=== PATIENT | female | born 1995 | race Caucasian/White ===

== ENCOUNTER → 2018-06-17 | Outpatient (CLI) | payer OTHER ==
--- NOTE | 2018-06-17 13:10 | US ---
EXAMINATION TYPE: US pelvic complete DATE OF EXAM: 06/17/2018 COMPARISON: NONE CLINICAL HISTORY: N91.2 AMENORRHEA. TECHNIQUE: . Transabdominal sonographic images of the pelvis were acquired. Date of LMP: Not reported EXAM MEASUREMENTS: Uterus: 7.2 x 2.7 x 3.3 cm Endometrial Stripe: 0.7 cm Right Ovary: 2.3 x 2.0 x 1.6 cm Left Ovary: 2.7 x 1.9 x 1.6 cm 1. Uterus: Anteverted wnl 2. Endometrium: wnl 3. Right Ovary: wnl 4. Left Ovary: wnl 5. Bilateral Adnexa: wnl 6. Posterior cul-de-sac: wnl Urinary bladder is sonolucent. The posterior wall is unremarkable. IMPRESSION: 1. Normal pelvic ultrasound
== END | disposition home or self-care (01) ==
LOC: RADUSWWP 08:00
PROVIDERS: ATTEND Internal Medicine
DX: N91.2 Amenorrhea, unspecified (principal)
CPT/HCPCS: 76856

== ENCOUNTER 2020-07-23 13:31 | Inpatient (IN) | payer OTHER ==
[2020-07-31] MEDS ORDERED: METHYLERGONOVINE 0.2 MG/ML 1 ML AMP IM PRN (07:03)
[2020-07-31] MEDS ORDERED: CARBOPROST TROMETHAMINE 250 MCG/ML 1 ML AMP IM PRN (07:03)
[2020-07-31] MEDS ORDERED: LIDOCAINE 0.5% (PF) 5 MG/ML (50 ML SDV) SQ PRN (07:03)
[2020-07-31] MEDS ORDERED: OXYTOCIN 10 UNIT/ML 1 ML VIAL IM PRN (07:03)
[2020-07-31] MEDS ORDERED: TERBUTALINE 1 MG/ML VIAL SQ PRN (07:03)
[2020-07-31] MEDS ORDERED: OXYTOCIN 30 UNITS/500 ML NS 30 UNIT in SALINE 1 500ML.BAG IV SCH (07:15)
[2020-07-31 07:43] LABS: Basophils % (A) 0 %; Eosinophils # (A) 0.3 k/uL (0-0.7); Eosinophils % (A) 3 %; HCT 36.1 % (34.0-46.0); HGB 11.7 gm/dL (11.4-16.0); Hypochromasia Slight; Lymphocytes # (A) 1.6 k/uL (1.0-4.8); Lymphocytes % (A) 17 %; MCH 25.2 pg (25.0-35.0); MCHC 32.4 g/dL (31.0-37.0); Mean Platelet Volume 7.3; Monocytes # (A) 0.6 k/uL (0-1.0); Monocytes % (A) 6 %; Neutrophils % (A) 73 %; Platelet Count 364 k/uL (150-450); RBC 4.63 m/uL (3.80-5.40); RDW 14.8 % (11.5-15.5); WBC 9.5 k/uL (3.8-10.6)
[2020-07-31] MEDS: LACTATED RINGERS 1,000 ML IV SCH ×3 (07:53→17:22)
[2020-07-31] MEDS: BUTORPHANOL 1 MG/ML 1 ML VIAL IV PRN ×3 (12:55→19:49)
[2020-07-31] MEDS ORDERED: ROPIVACAINE 100 MG, fentaNYL (PF) 200 MCG in SODIUM CHLORIDE 0.9% 76 ML EPIDURAL ONE (18:59)
--- NOTE | 2020-07-31 20:09 | P.HPOB ---
History of Present Illness H&P Date: 07/31/20 Chief Complaint: Intrauterine at term: Induction of labor Patient is a 25-year-old at 40 weeks gestation arrives for induction of labor. Her course was uncomplicated and while she had a breech presentation at 34 weeks the baby did flip a 36 weeks and she is dilated to 1- 1/2 cm 80% effaced and -2 station. Artificial rupture membranes was performed clear fluid is noted and a category 1 tracing is noted. Pertinent labs include negative groupie strep past one-hour Glucola screen A- blood type, Rh and but was negative, rubella is immune, hepatitis be surface antigen and RPR were both negative. She did receive Rasta gamma. All questions are answered for she is where of increased risk for need for section with induction of labor. Past Medical History Past Medical History: No Reported History History of Any Multi-Drug Resistant Organisms: None Reported Past Surgical History: No Surgical Hx Reported Past Anesthesia/Blood Transfusion Reactions: No Reported Reaction Past Psychological History: ADD/ADHD Smoking Status: Former smoker Past Alcohol Use History: Occasional Past Drug Use History: Marijuana - Past Family History Mother Family Medical History: No Reported History Father Family Medical History: No Reported History Medications and Allergies Home Medications Medication Instructions Recorded Confirmed Type Pnv No.95/Ferrous Fum/Folic AC 1 tab PO ONCE 07/31/20 07/31/20 History [ Multivitamin Tablet] Allergies Allergy/AdvReac Type Severity Reaction Status Date / Time No Known Allergies Allergy Verified 07/31/20 07:03 Exam Osteopathic Statement: *. No significant issues noted on an osteopathic structural exam other than those noted in the History and Physical/Consult. Vital Signs Temp Pulse Resp BP Pulse Ox 07/31/20 07:02 96.7 F L 119 H 18 135/87 98 Intake and Output 07/31/20 07/31/20 07/31/20 06:59 14:59 22:59 Intake Total 1000 Balance 1000 Intake: IV 1000 Other: Weight 109.769 kg - OBG Physical Exam Breast: both: normal (no masses) Abdomen: bowel sounds normal, no diffuse tenderness, no bruit present, no guarding noted, no hepatomegaly, no splenomegaly, no mass Vulva: both: normal Vagina: normal moisture, no discharge Cervix: no lesion, no discharge Uterus: normal size, normal contour Adnexa: both: normal Anus/Rectum: normal perianal skin, no rectal mass, no hemorrhoids, heme negative Results Result Diagrams: 07/31/20 07:07 Abnormal Lab Results - Last 24 Hours (Table) 07/31/20 Range/Units 07:07 MCV 78.0 L (80.0-100.0) fL
[2020-07-31] MEDS ORDERED: BENZOCAINE/MENTHOL SPRAY 1 GM/SPRAY AEROSOL TOPICAL PRN (23:34)
[2020-07-31] MEDS ORDERED: ZOLPIDEM 5 MG TAB PO PRN (23:34)
[2020-07-31] MEDS ORDERED: Rhogam IMMUNE GLOBULIN 1,500 UNIT/1 ML IM ONE (23:34)
[2020-07-31] MEDS ORDERED: SIMETHICONE 80 MG CHEWABLE PO PRN (23:34)
[2020-07-31] MEDS ORDERED: ACETAMINOPHEN TAB 325 MG TAB PO PRN (23:34)
[2020-07-31] MEDS ORDERED: diphenhydrAMINE 50 MG CAP PO PRN (23:34)
[2020-07-31] MEDS ORDERED: LANOLIN CREAM 5 GM TUBE TOPICAL PRN (23:34)
[2020-07-31] MEDS ORDERED: diphenhydrAMINE 50 MG/ML 1 ML VIAL IVP PRN ×2 (23:34)
[2020-07-31] MEDS ORDERED: HYDROCORTISONE 2.5% RECTAL CREAM 30 GM TUBE RECTAL PRN (23:34)
[2020-07-31] MEDS ORDERED: diphenhydrAMINE 25 MG CAP PO PRN (23:34)
[2020-07-31] MEDS ORDERED: OXYTOCIN 20 UNITS/1000 ML NS 1,000 ML IV SCH (23:45)
[2020-08-01] MEDS: IBUPROFEN 600 MG TAB PO PRN ×3 (00:15→17:09)
--- NOTE | 2020-08-01 07:41 | P.DS ---
Providers Date of admission: 07/31/20 06:51 Expected date of discharge: 08/01/20 Attending physician: Stuart Back Primary care physician: Stated None Hospital Course: Patient is doing very well day 1. She is ambulating, voiding and tolerating her diet. She voices no complaints. Vital signs are stable and afebrile. Heart regular, lungs clear, extremities without pain. Abdomen soft uterus is firm and currently Rasta lochia is reported to be light. We'll plan to discharge her to home later today once baby's past 24 hours. She does relate bleeding is light at this time but is aware that should she start having any heavy bleeding that it could be that there is still some membranes in her uterus that need to come out and she is to notify our office immediately. She was also warned the possibility she may see some membranes as things move forward, but at the conclusion of the delivery again I could not identify or palpate any more membranes. She will follow up with me in 6 weeks otherwise. Chart instructions were thoroughly reviewed and all questions were otherwise answered. She is stable for discharge at this time. Patient Condition at Discharge: Good Plan - Discharge Summary New Discharge Prescriptions: New Ibuprofen [Motrin] 600 mg PO Q6HR PRN #30 tab PRN Reason: Pain No Action Pnv No.95/Ferrous Fum/Folic AC [ Multivitamin Tablet] 1 tab PO ONCE Discharge Medication List Pnv No.95/Ferrous Fum/Folic AC [ Multivitamin Tablet] 1 tab PO ONCE 07/31/20 [History] Ibuprofen [Motrin] 600 mg PO Q6HR PRN #30 tab 08/01/20 [Rx] Follow up Appointment(s)/Referral(s): Stuart Back DO [Doctor of Osteopathic Medicine] - 6 Weeks Activity/Diet/Wound Care/Special Instructions: No heavy lifting, insertion driving, and pelvic rest. If any high temperatures, heavy bleeding, or severe pain call my office
[2020-08-01 08:13] LABS: Basophils % (A) 0 %; Eosinophils # (A) 0.1 k/uL (0-0.7); Eosinophils % (A) 1 %; HCT 30.2 % (34.0-46.0); Hypochromasia Moderate; Lymphocytes % (A) 14 %; MCH 25.2 pg (25.0-35.0); MCHC 31.2 g/dL (31.0-37.0); MCV 80.8 fL (80.0-100.0); Mean Platelet Volume 7.3; Monocytes # (A) 0.9 k/uL (0-1.0); Monocytes % (A) 7 %; Neutrophils # (A) 10.7 k/uL (1.3-7.7); Neutrophils % (A) 77 %; Platelet Count 311 k/uL (150-450); RBC 3.73 m/uL (3.80-5.40); RDW 14.9 % (11.5-15.5); WBC 13.9 k/uL (3.8-10.6)
[2020-08-01 08:22] LABS: HGB 9.4 gm/dL (11.4-16.0)
[2020-08-01] MEDS: SENNOSIDES-DOCUSATE SODIUM 1 EACH TAB PO SCH ×2 (08:32→21:22)
[2020-08-02] MEDS: IBUPROFEN 600 MG TAB PO PRN ×2 (00:13→08:13)
[2020-08-02] MEDS: SENNOSIDES-DOCUSATE SODIUM 1 EACH TAB PO SCH (08:13)
--- NOTE | 2020-08-02 08:19 | P.DS ---
Providers Date of admission: 07/31/20 06:51 Expected date of discharge: 08/02/20 Attending physician: Stuart Back Primary care physician: Stated None Hospital Course: Patient did not go home yesterday there are no changes otherwise her care for her follow-up she will be discharged home today in stable and satisfactory condition. She voices no other complaints. Her vital signs are stable and she is afebrile. Heart regular, lungs clear, extremities without pain. Abdomen soft her uterus is firm and her lochia is reported to be light. Patient Condition at Discharge: Good Plan - Discharge Summary New Discharge Prescriptions: New Ibuprofen [Motrin] 600 mg PO Q6HR PRN #30 tab PRN Reason: Pain No Action Pnv No.95/Ferrous Fum/Folic AC [ Multivitamin Tablet] 1 tab PO ONCE Discharge Medication List Pnv No.95/Ferrous Fum/Folic AC [ Multivitamin Tablet] 1 tab PO ONCE 07/31/20 [History] Ibuprofen [Motrin] 600 mg PO Q6HR PRN #30 tab 08/01/20 [Rx] Follow up Appointment(s)/Referral(s): Stuart Back DO [Doctor of Osteopathic Medicine] - 6 Weeks Activity/Diet/Wound Care/Special Instructions: No heavy lifting, insertion driving, and pelvic rest. If any high temperatures, heavy bleeding, or severe pain call my office Discharge Disposition: HOME SELF-CARE
[2020-08-02 09:01] VITALS: BP 111/69; PULSE 80; RESP 17; TEMP 98.3
--- NOTE | 2020-08-13 10:06 | P.PROBDLV ---
Vaginal Delivery Note - . Vaginal Delivery Note: Patient progressed complete and pushing with vacuum assisted vaginal delivery of a viable baby scores were 8 and 9 at one and 5 minutes respectively. Patient was pushing and baby got to approximately +2 station and was having deep variable decelerations with slow return to baseline. Due to some maternal exhaustion and heart tones were not returning to baseline rapidly decision to move forward with a vacuum-assisted delivery was made. A brief discussion was held with the family and patient but due to the urgent/emergent nature of need for delivery. Discussion was unable to be completed vacuum was applied and pumped to minimal millimeters mercury for use in the green zone. With one pull no pop offs the baby's head was easily delivered rest to 2 to and then anterior posterior shoulders were easily delivered followed by the remainder the baby. Baby was then mouth nares bulb suctioned and placed on mother's abdomen where the umbilical course allowed to pulsate for 30 seconds prior to clamping and cutting. Once this was completed umbilical cord was clamped cut usual fashion nursery personnel was present to assume care. Placenta was then delivered intact Pitocin was added to the IV. Laceration was then repaired with 3-0 Vicryl fine 1% Xylocaine for analgesia. Both mother and baby are stable following delivery. Please weight was 3.40 kg
== END 2020-08-02 10:55 | disposition home or self-care (01) | DRG 807 ==
LOC: 4FBP 07-31 06:51
PROVIDERS: ADMIT Obstetrics & Gynecology; ATTEND Obstetrics & Gynecology
PROC: 3E0R3BZ Introduction of Anesthetic Agent into Spinal Canal, Percutaneous Approach (ICD-10-PCS; principal; 2020-07-31)
PROC: 3E0234Z Introduction of Serum, Toxoid and Vaccine into Muscle, Percutaneous Approach (ICD-10-PCS; principal; 2020-07-31)
PROC: 00HU33Z Insertion of Infusion Device into Spinal Canal, Percutaneous Approach (ICD-10-PCS; principal; 2020-07-31)
PROC: 10D07Z6 Extraction of Products of Conception, Vacuum, Via Natural or Artificial Opening (ICD-10-PCS; principal; 2020-07-31)
PROC: 0HQ9XZZ Repair Perineum Skin, External Approach (ICD-10-PCS; principal; 2020-07-31)
DX: O76 Abnormality in fetal heart rate and rhythm complicating labor and delivery (principal); Z37.0 Single live birth; O75.81 Maternal exhaustion complicating labor and delivery; O70.0 First degree perineal laceration during delivery; O26.893 Other specified pregnancy related conditions, third trimester; Z67.11 Type A blood, Rh negative; Z3A.40 40 weeks gestation of pregnancy; Z87.891 Personal history of nicotine dependence; Z79.899 Other long term (current) drug therapy; Z86.59 Personal history of other mental and behavioral disorders
CPT/HCPCS: 85025; 85461; 86850; 86870; 86880; 86900; 86901

== ENCOUNTER 2024-01-30 09:49 | Observation (INO) | payer OTHER ==
[2024-01-30] MEDS ORDERED: ACETAMINOPHEN IV (For NPO) 1,000 MG in EMPTY BAG 1 BAG IVPB ONE (10:32)
[2024-01-30] MEDS: ACETAMINOPHEN IV (For NPO) 1,000 MG in EMPTY BAG 1 BAG IVPB STA (10:40)
[2024-01-30] MEDS: ONDANSETRON 4 MG/2 ML VIAL IVP STA (10:41)
[2024-01-30 10:57] LABS: Appearance,Urine Turbid (Clear); Bacteria,Urine Occasional /hpf; Bilirubin,Urine Negative (Negative); Blood,Urine Moderate (Negative); Color,Urine Yellow; Glucose,Urine (UA) Trace (Negative); Ketones,Urine Negative (Negative); Leukocyte Esterase,Urine Large (Negative); Mucus,Urine Moderate /hpf; Nitrite,Urine Negative (Negative); Protein,Urine 1+ (Negative); RBC,Urine 48 /hpf (0-5); Specific Gravity,Urine 1.031 (1.001-1.035); Squamous Epithelial Cell,Urine 13 /hpf (0-4); Urobilinogen,Urine <2.0 mg/dL (<2.0); WBC,Urine 106 /hpf (0-5)
[2024-01-30] MEDS ORDERED: ONDANSETRON 4 MG/2 ML VIAL IVP PRN (12:00)
[2024-01-30] MEDS: HYDROmorphone 0.5 MG/0.5 ML SYRINGE IVP PRN (12:24)
[2024-01-30] MEDS: LACTATED RINGERS 1,000 ML IV SCH (12:27)
[2024-01-30 12:28] LABS: Basophils % (A) 0 %; Eosinophils # (A) 0.1 k/uL (0-0.7); Eosinophils % (A) 1 %; HGB 11.4 gm/dL (11.4-16.0); Lymphocytes # (A) 1.1 k/uL (1.0-4.8); Lymphocytes % (A) 13 %; MCH 27.4 pg (25.0-35.0); MCHC 31.7 g/dL (31.0-37.0); MCV 86.3 fL (80.0-100.0); Mean Platelet Volume 7.8; Monocytes # (A) 0.4 k/uL (0-1.0); Monocytes % (A) 5 %; Neutrophils # (A) 6.6 k/uL (1.3-7.7); Neutrophils % (A) 80 %; Platelet Count 286 k/uL (150-450); RBC 4.17 m/uL (3.80-5.40); RDW 14.2 % (11.5-15.5); WBC 8.3 k/uL (3.8-10.6)
[2024-01-30 12:56] LABS: ALT 11 U/L (4-34); AST 25 U/L (14-36); African American GFR (CKD) >90 (>60 ml/min/1.73 sqM); Albumin 3.5 g/dL (3.5-5.0); Alkaline Phosphatase 69 U/L (38-126); Anion Gap 10 mmol/L; Blood Urea Nitrogen 6 mg/dL (7-17); Calcium 9.3 mg/dL (8.4-10.2); Carbon Dioxide 15 mmol/L (22-30); Chloride 107 mmol/L (98-107); Glucose 81 mg/dL (74-99); Non-African American GFR(CKD) >90 (>60 ml/min/1.73 sqM); Sodium 132 mmol/L (137-145); Total Bilirubin 0.6 mg/dL (0.2-1.3); Total Protein 6.6 g/dL (6.3-8.2)
[2024-01-30 12:58] LABS: Potassium 4.2 mmol/L (3.5-5.1)
[2024-01-30] MEDS: ACETAMINOPHEN IV (For NPO) 1,000 MG in EMPTY BAG 1 BAG IVPB PRN (17:58)
--- NOTE | 2024-01-30 21:44 | P.HPOB ---
History of Present Illness H&P Date: 01/30/24 Chief Complaint: IUP @ 24 weeks, renal lithiasis 28 yo at 24 weeks that presented to labor and delivery with urinary complaints. She states she was treated for a UTI about a week ago but symptoms did return wed/. she noted increased pain that radiated from her right flank to the groin prior to presentation. She in addition had noted n/v upon presentation. she is noting FM, denies ctx or VB UA was done in triage with blood large leuks, and WBC. She was given ofirimev which initially controlled her pain quite well, but within 1-2 hours she noted the pain returned. SHe was then admitted for IV, antibiotics and pain control. Review of Systems Constitutional: Denies chills, Denies fatigue, Denies fever Ears, nose, mouth and throat: Denies headache Cardiovascular: Denies leg edema Respiratory: Denies dyspnea Gastrointestinal: Reports nausea, Reports vomiting Genitourinary: Reports dysuria, Reports flank pain, Reports Past Medical History Past Medical History: No Reported History History of Any Multi-Drug Resistant Organisms: None Reported Past Surgical History: No Surgical Hx Reported Past Anesthesia/Blood Transfusion Reactions: No Reported Reaction Past Psychological History: ADD/ADHD Smoking Status: Vaper Past Alcohol Use History: Occasional Past Drug Use History: Marijuana - Past Family History Mother Family Medical History: No Reported History Father Family Medical History: No Reported History Medications and Allergies Home Medications Medication Instructions Recorded Confirmed Type Pnv No.95/Ferrous Fum/Folic AC 1 tab PO ONCE 07/31/20 07/31/20 History [ Multivitamin Tablet] Ibuprofen [Motrin] 600 mg PO Q6HR PRN #30 tab 08/01/20 Rx Allergies Allergy/AdvReac Type Severity Reaction Status Date / Time Sulfa (Sulfonamide Allergy Rash/Hives Verified 01/30/24 10:28 Antibiotics) Exam Osteopathic Statement: *. No significant issues noted on an osteopathic structural exam other than those noted in the History and Physical/Consult. Vital Signs Temp Pulse Resp BP 01/30/24 14:45 98.6 F 72 20 118/67 01/30/24 11:57 97.9 F 100 16 122/83 01/30/24 10:30 97.9 F 100 16 122/83 Intake and Output 03/01/30/24 01/30/24 06:59 14:59 22:59 Intake Total 240 Output Total 300 300 Balance -60 -300 Intake: Oral 240 Output: Urine 300 300 Other: Voiding Method Toilet # Voids 1 1 # Bowel Movements 0 Weight 112.491 kg Targeted physical exam was performed in the state General is a well-nourished well-developed female in no acute distress (She states her pain is improved from admission), breathing is nonlabored, heart has a regular rate and rhythm, abdomen is gravid, heart tones are appropriate for gestational age, cervical exam is deferred. Results Result Diagrams: 01/30/24 12:00 01/30/24 12:23 Abnormal Lab Results - Last 24 Hours (Table) 01/30/24 01/30/24 Range/Units 10:28 12:23 Sodium 132 L (137-145) mmol/L Carbon Dioxide 15 L (22-30) mmol/L BUN 6 L (7-17) mg/dL Urine Appearance Turbid H (Clear) Urine Protein 1+ H (Negative) Urine Glucose (UA) Trace H (Negative) Urine Blood Moderate H (Negative) Ur Leukocyte Esterase Large H (Negative) Urine RBC 48 H (0-5) /hpf Urine WBC 106 H (0-5) /hpf Urine WBC Clumps Many H (None) /hpf Ur Squamous Epith Cells 13 H (0-4) /hpf Urine Bacteria Occasional H (None) /hpf Urine Mucus Moderate H (None) /hpf Assessment and Plan (1) 24 weeks gestation of Current Visit: Yes Status: Acute Code(s): Z3A.24 - 24 WEEKS GESTATION OF SNOMED Code(s): 257508427 (2) Renal lithiasis Current Visit: Yes Status: Acute Code(s): N20.0 - CALCULUS OF KIDNEY SNOMED Code(s): 36517156 (3) Nausea & vomiting Current Visit: Yes Status: Acute Code(s): R11.2 - NAUSEA WITH VOMITING, UNSPECIFIED SNOMED Code(s): 53905488 (4) UTI (urinary tract infection) Current Visit: Yes Status: Acute Code(s): N39.0 - URINARY TRACT INFECTION, SITE NOT SPECIFIED SNOMED Code(s): 90651592 Plan: 28-year-old at 24 weeks of is admitted for renal lithiasis, UTI. Patient had significant nausea and vomiting upon presentation. Patient has IV fluids LR @ 125cc/hr, Ofirmev and Dilaudid are offered for pain control. Zofran is ordered and has controlled her nausea quite well since admission. FHTs q shift Will continue to observe overnight and if pain is improved through the evening we will plan on discharge home tomorrow.
[2024-01-31] MEDS: ACETAMINOPHEN TAB 500 MG TAB PO STA (08:19)
[2024-01-31 08:51] VITALS: BP 112/70; PULSE 94; RESP 18; TEMP 98
--- NOTE | 2024-01-31 09:05 | P.DS ---
Providers Date of admission: 01/30/24 11:53 Expected date of discharge: 01/31/24 Attending physician: Caty Spear Primary care physician: Stated None - Discharge Diagnosis(es) (1) 24 weeks gestation of Current Visit: Yes Status: Acute (2) Renal lithiasis Current Visit: Yes Status: Acute (3) UTI (urinary tract infection) Current Visit: Yes Status: Acute Hospital Course: The patient is a 28-year-old 3 para 1-0-1-1 admitted at 24 weeks by good dating parameters. She is admitted with presumptive nephrolithiasis secondary to significant flank pain without fever. There was no evidence of pyelone phritis on admission. She does have evidence of possible UTI having been treated for UTI approximately 1 week ago with Macrobid. Antibiotic prophylaxis was started with Kefzol. Over the next 24 hours along with aggressive IV hydration, her pain has significantly improved and she is performing all activities of daily living. She was deemed stable for discharge on hospital day #2 and was discharged home to follow-up in the office as previously scheduled in approximately 2 weeks. Instructions were to call for any significantly increasing symptoms or concerns for which there have been none during the hospitalization. She was to aggressively orally hydrate at home. She was given a prescription for Keflex 500 mg 3 times daily by mouth for 7 days. Urine culture is pending. Procedures: #1. IV hydration #2. IV pain control #3. Antibiotic prophylaxis Patient Condition at Discharge: Stable Plan - Discharge Summary New Discharge Prescriptions: No Action Pnv No.95/Ferrous Fum/Folic AC [ Multivitamin Tablet] 1 tab PO ONCE Ibuprofen [Motrin] 600 mg PO Q6HR PRN #30 tab PRN Reason: Pain Discharge Medication List Pnv No.95/Ferrous Fum/Folic AC [ Multivitamin Tablet] 1 tab PO ONCE 07/31/20 [History] Ibuprofen [Motrin] 600 mg PO Q6HR PRN #30 tab 08/01/20 [Rx] Follow up Appointment(s)/Referral(s): Juarez Mckenzie MD [STAFF PHYSICIAN] - 2 Weeks Discharge Disposition: HOME SELF-CARE
== END 2024-01-31 10:05 | disposition home or self-care (01) ==
LOC: FBPOP 09:49 → 4FBP 11:53
PROVIDERS: ADMIT Obstetrics & Gynecology Obstetrics; ATTEND Obstetrics & Gynecology Obstetrics
DX: O26.832 Pregnancy related renal disease, second trimester (principal); N20.0 Calculus of kidney; O23.42 Unspecified infection of urinary tract in pregnancy, second trimester; O99.342 Other mental disorders complicating pregnancy, second trimester; F90.9 Attention-deficit hyperactivity disorder, unspecified type; O99.332 Smoking (tobacco) complicating pregnancy, second trimester; F17.290 Nicotine dependence, other tobacco product, uncomplicated; Z3A.24 24 weeks gestation of pregnancy; Z88.2 Allergy status to sulfonamides
CPT/HCPCS: 96376; 99214; 96361; 96365; 96366 ×2; 96367; 96374; 96375; 80053; 85025; 81001; 87086; G0378 ×2; J0690 ×2; J2405; J0131; J1170

== ENCOUNTER 2024-05-15 05:59 | Inpatient (IN) | payer OTHER ==
[2024-05-15] MEDS: LACTATED RINGERS 1,000 ML IV SCH (06:15)
[2024-05-15] MEDS ORDERED: CARBOPROST TROMETHAMINE 250 MCG/ML 1 ML AMP IM PRN (06:18)
[2024-05-15] MEDS ORDERED: METHYLERGONOVINE 0.2 MG/ML 1 ML AMP IM PRN (06:18)
[2024-05-15] MEDS ORDERED: OXYTOCIN 10 UNIT/ML 1 ML VIAL IM PRN (06:18)
[2024-05-15] MEDS ORDERED: miSOPROStoL 200 MCG TAB PO PRN (06:18)
[2024-05-15] MEDS ORDERED: TERBUTALINE 1 MG/ML VIAL SQ PRN (06:18)
[2024-05-15] MEDS ORDERED: TRANEXAMIC 1,000 MG/100ML-NACL 1,000 MG in EMPTY BAG 1 BAG IV PRN (06:18)
[2024-05-15] MEDS: OXYTOCIN 30 UNITS/500 ML NS 30 UNIT in SALINE 1 500ML.BAG IV SCH ×2 (06:35→15:30)
[2024-05-15 07:14] LABS: Anisocytosis Slight; Basophils % (A) 0 %; Eosinophils # (A) 0.1 k/uL (0-0.7); Eosinophils % (A) 2 %; HCT 30.6 % (34.0-46.0); HGB 9.2 gm/dL (11.4-16.0); Hypochromasia Marked; Lymphocytes # (A) 1.9 k/uL (1.0-4.8); Lymphocytes % (A) 29 %; MCH 22.5 pg (25.0-35.0); Mean Platelet Volume 8.9; Microcytosis Slight; Monocytes # (A) 0.4 k/uL (0-1.0); Monocytes % (A) 6 %; Neutrophils % (A) 60 %; Platelet Count 260 k/uL (150-450); Poikilocytosis Slight; RBC 4.07 m/uL (3.80-5.40); RDW 16.2 % (11.5-15.5); WBC 6.6 k/uL (3.8-10.6)
[2024-05-15] MEDS ORDERED: NALBUPHINE 10 MG/ML (10 ML MDV) IV PRN (08:50)
--- NOTE | 2024-05-15 08:54 | P.HPOB ---
History of Present Illness H&P Date: 05/15/24 Chief Complaint: 39-1/7 weeks, elective induction The patient is a 28-year-old 3 para 1-0-1-1 admitted at 39-1/7 weeks as established by last menstrual period and confirmed by 16-week ultrasound. She is admitted for elective induction of labor with all signs reassuring, category 1 heart rate tracing. She is known to be Rh- and received RhoGAM at 28 weeks. She otherwise has had an uncomplicated and group B strep status is negative. Obstetrical history: 3 para 1-0-1-1 with 1 term vaginal delivery complicated by retained placenta. Current statistics are listed in history of present illness. EDC of 05/21/2024 was established by last menstrual period and confirmed by 16-week ultrasound. Laboratory workup demonstrates a blood type of a negative with a negative antibody screen. Rubella status is immune. The remainder of the laboratory workup was within normal limits. Early Glucola as well as second trimester Glucola within normal limits. Group B strep status is negative. Gynecologic history: Unremarkable with no history of any infections to include STDs. Review of Systems Review of systems is confined to history of present illness. Past Medical History Past Medical History: No Reported History History of Any Multi-Drug Resistant Organisms: None Reported Past Surgical History: No Surgical Hx Reported Past Anesthesia/Blood Transfusion Reactions: No Reported Reaction Past Psychological History: ADD/ADHD Smoking Status: Never smoker Past Drug Use History: None Reported - Past Family History Mother Family Medical History: No Reported History Father Family Medical History: No Reported History Medications and Allergies Home Medications Medication Instructions Recorded Confirmed Type Pnv No.95/Ferrous Fum/Folic AC 1 tab PO ONCE 07/31/20 01/31/24 History [ Multivitamin Tablet] Allergies Allergy/AdvReac Type Severity Reaction Status Date / Time Sulfa (Sulfonamide Allergy Rash/Hives Verified 05/15/24 06:16 Antibiotics) Exam Vital Signs Temp Pulse Resp BP Pulse Ox 05/15/24 06:15 97.4 F L 93 18 126/88 96 Intake and Output 05/14/24 05/15/24 05/15/24 22:59 06:59 14:59 Other: Weight 111.584 kg In general, this is a well-developed, well-nourished white female in no acute distress. Her heart has a regular rhythm and rate without murmur. Her lungs are clear to auscultation bilaterally in all [place]. Her abdomen is gravid, nondistended, has normal active bowel sounds, soft, nontender, and without any palpable masses aside from the uterine fundus. Her extremities are without any cyanosis, clubbing, or edema and are nontender to palpation bilaterally. Digital cervical examination demonstrates the cervix to be 2+ centimeters dilated, 50 to 60% effaced, with a vertex and presentation at -2 station. Artificial rupture of membranes is carried out demonstrating clear fluid. Results Result Diagrams: 05/15/24 06:19 Abnormal Lab Results - Last 24 Hours (Table) 05/15/24 Range/Units 06:19 Hgb 9.2 L (11.4-16.0) gm/dL Hct 30.6 L (34.0-46.0) % MCV 75.0 L (80.0-100.0) fL MCH 22.5 L (25.0-35.0) pg MCHC 30.0 L (31.0-37.0) g/dL RDW 16.2 H (11.5-15.5) % Assessment and Plan (1) Term Current Visit: Yes Status: Acute Code(s): Z34.90 - ENCNTR FOR SUPRVSN OF NORMAL , UNSP, UNSP TRIMESTER SNOMED Code(s): 32792784
[2024-05-15] MEDS ORDERED: fentaNYL (PF) 50 MCG/ML 5 ML AMP ONE (11:49)
[2024-05-15] MEDS ORDERED: ROPIVACAINE 5 MG/ML 30 ML VIAL ONE (11:49)
[2024-05-15] MEDS ORDERED: SODIUM CHLORIDE 0.9% 250 ML BAG ONE (11:49)
[2024-05-15] MEDS ORDERED: SIMETHICONE 80 MG CHEWABLE PO PRN (14:42)
[2024-05-15] MEDS ORDERED: diphenhydrAMINE 50 MG/ML 1 ML VIAL IVP PRN ×2 (14:42)
[2024-05-15] MEDS ORDERED: diphenhydrAMINE 25 MG CAP PO PRN (14:42)
[2024-05-15] MEDS ORDERED: diphenhydrAMINE 50 MG CAP PO PRN (14:42)
[2024-05-15] MEDS ORDERED: HYDROCORTISONE 2.5% RECTAL CREAM 30 GM TUBE RECTAL PRN (14:42)
[2024-05-15] MEDS ORDERED: HYDROcodone/APAP 7.5-325MG 1 EACH TAB PO PRN (14:42)
[2024-05-15] MEDS ORDERED: BENZOCAINE/MENTHOL SPRAY 1 GM/SPRAY AEROSOL TOPICAL PRN (14:42)
[2024-05-15] MEDS ORDERED: HYDROcodone/APAP 5-325MG 1 EACH TAB PO PRN (14:42)
[2024-05-15] MEDS ORDERED: ZOLPIDEM 5 MG TAB PO PRN (14:42)
[2024-05-15] MEDS ORDERED: LANOLIN CREAM 1 GM TUBE TOPICAL PRN (14:42)
[2024-05-15] MEDS ORDERED: ACETAMINOPHEN TAB 325 MG TAB PO PRN (14:42)
--- NOTE | 2024-05-15 14:47 | P.PROBDLV ---
Vaginal Delivery Note - . Vaginal Delivery Note: The patient is a 28-year-old 3 para 1-0-1-1 admitted at 39-0/7 weeks by good dating parameters. Her has been uncomplicated and group B strep status is negative. She is Rh- and received RhoGAM at 28 weeks. On labor delivery, all signs are reassuring with category 1 heart rate tracing. She had Pitocin augmentation started followed by artificial rupture of membranes for clear fluid. She progressed through the latent phase of labor to the active phase at which time an epidural catheter was placed for analgesia. She then made fairly rapid progress through the active phase of labor to complete and pushed over the course of approximately 2-3 contractions to a normal spontaneous vaginal delivery of a viable 7 pound 1 ounce baby girl with Apgars of 9 at 1 minute and 9 at 5 minutes delivered in the left occiput anterior position. The placenta was delivered spontaneously and initially thought to be intact and grossly normal with a grossly normal three-vessel cord inserted approximately 3 to 4 cm from the margin of the placental disc. The patient continued to have a small amount of bleeding and exploration of her cervix demonstrated 1 single cotyledon that was lodged in the lower uterine segment and removed manually without difficulty after which time bleeding stopped. She was found to have a second-degree midline laceration likely over the site of a previous midline episiotomy as it was perfectly straight. This was repaired in standard fashion using 3-0 chromic catgut without difficulty. Estimated blood loss for the case was approximately 400 mL. There were no complications. All sponge, instrument, and needle counts were correct. Both mother and infant are resting comfortably in recovery.
[2024-05-15] MEDS: LIDOCAINE 0.5% (PF) 5 MG/ML (50 ML SDV) SQ PRN (15:31)
[2024-05-15] MEDS: IBUPROFEN 600 MG TAB PO PRN (19:01)
[2024-05-15] MEDS: SENNOSIDES-DOCUSATE SODIUM 1 EACH TAB PO SCH (19:45)
[2024-05-15] MEDS: Rhogam IMMUNE GLOBULIN 1,500 UNIT/1 ML IM ONE (20:39)
[2024-05-16 04:12] VITALS: RESP 16
[2024-05-16 07:59] LABS: Basophils % (A) 0 %; Eosinophils # (A) 0.2 k/uL (0-0.7); Eosinophils % (A) 2 %; HCT 24.9 % (34.0-46.0); Hypochromasia Marked; Lymphocytes # (A) 2.1 k/uL (1.0-4.8); Lymphocytes % (A) 24 %; MCH 23.4 pg (25.0-35.0); MCHC 30.6 g/dL (31.0-37.0); MCV 76.5 fL (80.0-100.0); Mean Platelet Volume 7.9; Microcytosis Slight; Monocytes # (A) 0.5 k/uL (0-1.0); Monocytes % (A) 6 %; Neutrophils # (A) 5.7 k/uL (1.3-7.7); Neutrophils % (A) 66 %; Platelet Count 200 k/uL (150-450); Poikilocytosis Slight; RBC 3.25 m/uL (3.80-5.40); WBC 8.7 k/uL (3.8-10.6)
[2024-05-16 08:02] LABS: HGB 7.6 gm/dL (11.4-16.0)
[2024-05-16 08:25] VITALS: BP 130/72; PULSE 86; TEMP 98.5
--- NOTE | 2024-05-16 08:38 | P.DS ---
Providers Date of admission: 05/15/24 05:59 Expected date of discharge: 05/16/24 Attending physician: Juarez Mckenzie Primary care physician: Stated None - Discharge Diagnosis(es) (1) Term Current Visit: Yes Status: Acute (2) Normal spontaneous vaginal delivery Current Visit: Yes Status: Acute Hospital Course: The patient is a 28-year-old 3 para 1-0-1-1 admitted at 39-1/7 weeks by good dating parameters. She is admitted for elective induction of labor with all signs reassuring. Her was uncomplicated though she is Rh- and received RhoGAM at 28 weeks. Group B strep status is negative. On labor and delivery, she had Pitocin started and underwent artificial rupture of membranes. She had an epidural catheter placed around the onset of the active phase of labor. She progressed quickly through the active phase to complete and pushed to a normal spontaneous vaginal delivery of a viable 7 pound 1 ounce baby girl with Apgars of 9 at 1 minute and 9 at 5 minutes. Her course was unremarkable with vital signs remaining stable and her temperature was afebrile throughout. She was deemed stable for discharge on day #1 and was discharged home to follow-up in the office in 6 weeks time routinely. Discharge instructions included calling for any significantly increased bleeding or foul- smelling lochia, significantly increased fever or abdominal pain, perineal complaints, breast complaints, or anything else that concerned her. She was additionally instructed to have nothing in the vagina for at least 6 weeks time to include intercourse. She understood her instructions and agrees to follow-up as noted above. Discharge medications included continued vitamins as she has opted to breast-feed. She was otherwise to use [id number] analgesic pain medications as needed. Maternal blood type is A- and rubella sta tus is immune. Procedures: #1. Pitocin induction #2. Artificial rupture of membranes #3. Epidural analgesia #4. Normal spontaneous vaginal delivery #5. Repair of perineal laceration Patient Condition at Discharge: Stable Plan - Discharge Summary New Discharge Prescriptions: No Action Pnv No.95/Ferrous Fum/Folic AC [ Multivitamin Tablet] 1 tab PO ONCE Discharge Medication List Pnv No.95/Ferrous Fum/Folic AC [ Multivitamin Tablet] 1 tab PO ONCE 07/31/20 [History] Follow up Appointment(s)/Referral(s): Juarez Mckenzie MD [STAFF PHYSICIAN] - 06/26/24 10:15 am Discharge Disposition: HOME SELF-CARE
== END 2024-05-16 15:20 | disposition home or self-care (01) | DRG 807 ==
LOC: 4FBP 05:59
PROVIDERS: ADMIT Obstetrics & Gynecology; ATTEND Obstetrics & Gynecology
PROC: 0KQM0ZZ Repair Perineum Muscle, Open Approach (ICD-10-PCS; principal; 2024-05-15)
PROC: 10907ZC Drainage of Amniotic Fluid, Therapeutic from Products of Conception, Via Natural or Artificial Opening (ICD-10-PCS; principal; 2024-05-15)
PROC: 10E0XZZ Delivery of Products of Conception, External Approach (ICD-10-PCS; principal; 2024-05-15)
PROC: 3E0234Z Introduction of Serum, Toxoid and Vaccine into Muscle, Percutaneous Approach (ICD-10-PCS; principal; 2024-05-15)
PROC: 3E033VJ Introduction of Other Hormone into Peripheral Vein, Percutaneous Approach (ICD-10-PCS; principal; 2024-05-15)
DX: O26.893 Other specified pregnancy related conditions, third trimester (principal); O99.344 Other mental disorders complicating childbirth; F90.9 Attention-deficit hyperactivity disorder, unspecified type; O70.1 Second degree perineal laceration during delivery; Z67.11 Type A blood, Rh negative; Z88.2 Allergy status to sulfonamides; Z28.310 Unvaccinated for COVID-19; Z3A.39 39 weeks gestation of pregnancy; Z37.0 Single live birth
CPT/HCPCS: 85025; 85461; 86850; 86900; 86901